=== PATIENT | female | born 1990 | race Caucasian/White ===

== ENCOUNTER 2017-07-09 14:27 | Day surgery (SDC) | payer OTHER ==
[2017-07-09 15:34] LABS: BILIRUBIN,URINE NEGATIVE (NEGATIVE); GLUCOSE, URINE (UA) NEGATIVE (NEGATIVE); KETONES,URINE (UA) TRACE mg/dL (NEGATIVE); LEUKOCYTE ESTERASE, URINE NEGATIVE (NEGATIVE); NITRITE,URINE NEGATIVE (NEGATIVE); OCCULT BLOOD,URINE TRACE-INTA (NEGATIVE); PH,URINE 7.5 PH (5.0-7.5); PROTEIN,URINE NEGATIVE (NEGATIVE); UROBILINOGEN,URINE 0.2 (NORMAL) E.U./dL (NORMAL)
[2017-07-09 15:38] LABS: CLARITY,URINE CLEAR (CLEAR)
[2017-07-09 15:39] LABS: HCG UR QUAL POSITIVE
--- NOTE | 2017-07-09 15:48 | ED Physician Documentation ---
PD HPI FEMALE - Stated complaint Stated Complaint: FEMALE - Chief complaint Chief Complaint: Abd Pain - History obtained from History obtained from: Patient - History of Present Illness Timing - onset: How many days ago (3) Timing - duration: Days (3) Timing - details: Gradual onset, Waxing and waning Associated symptoms: Vaginal bleeding. No: Vaginal discharge, Genital sore/ lesion, Dysuria Contributing factors: (had positive test at home recently.) [employer]INING [employer] History: G (1), P (0) Similar symptoms before: Has not had sx before Recently seen: Not recently seen Review of Systems Constitutional: denies: Fever, Chills Nose: denies: Rhinorrhea / runny nose, Congestion Throat: denies: Sore throat Respiratory: denies: Dyspnea, Cough GI: denies: Abdominal Pain, Nausea, Vomiting, Diarrhea Skin: denies: Rash, Lesions PD PAST MEDICAL HISTORY - Past Medical History Cardiovascular: None Respiratory: None Neuro: None Endocrine/Autoimmune: None - Present Medications Home Medications: Ambulatory Orders Medication Instructions Recorded Confirmed No Known Home Medications [No 07/09/17 07/09/17 Known Home Medications] - Allergies Allergies/Adverse Reactions: Allergies Allergy/AdvReac Type Severity Reaction Status Date / Time No Known Drug Allergies Allergy Verified 07/09/17 14:36 PD ED PE NORMAL - Vitals Vital signs reviewed: Yes - General General: Alert and oriented X 3, No acute distress, Well developed/nourished - HEENT HEENT: Pharynx benign - Neck Neck: Supple, no meningeal sign, No adenopathy - Cardiac Cardiac: RRR, No murmur - Respiratory Respiratory: Clear bilaterally - Abdomen Abdomen: Soft, Non tender, Other (mild tender right lower) - Derm Derm: Normal color, Warm and dry - Extremities Extremities: No deformity, No tenderness to palpate - Neuro Neuro: Alert and oriented X 3, No motor deficit, Normal speech Results - Vitals Vitals: Vital Signs - 24 hr 07/09/17 07/09/17 07/09/17 14:30 18:19 19:44 Temperature 36.3 C L 37.1 C 36.9 C Heart Rate 90 82 93 Respiratory 16 20 18 Rate Blood Pressure 130/62 111/69 105/68 Blood Pressure [Left Brachial artery] O2 Saturation 99 100 100 07/09/17 07/09/17 07/09/17 21:27 21:30 21:35 Temperature Heart Rate Respiratory Rate Blood Pressure Blood Pressure [Left Brachial artery] O2 Saturation 100 100 100 07/09/17 07/09/17 07/09/17 21:40 21:45 21:50 Temperature Heart Rate Respiratory Rate Blood Pressure Blood Pressure [Left Brachial artery] O2 Saturation 97 100 100 07/09/17 07/09/17 07/09/17 21:56 22:00 22:18 Temperature 37.4 C Heart Rate 98 90 Respiratory 14 14 Rate Blood Pressure Blood Pressure 134/69 H 105/61 [Left Brachial artery] O2 Saturation 100 99 99 Oxygen O2 Source Room air - Labs Labs: Laboratory Tests 07/09/17 07/09/17 07/09/17 15:20 15:20 16:24 WBC RBC Hgb Hct MCV MCH MCHC RDW Plt Count MPV Neut # Lymph # [place] # Eos # Baso # Absolute Nucleated RBC Nucleated RBC % HCG, Quant 2377.00 Urine Color YELLOW Urine Clarity CLEAR Urine pH 7.5 Ur Specific [place] 1.020 1.020 Urine Protein NEGATIVE Urine Glucose (UA) NEGATIVE Urine Ketones TRACE Urine Occult Blood TRACE-INTA Urine Nitrite NEGATIVE Urine Bilirubin NEGATIVE Urine Urobilinogen 0.2 (NORMAL) Ur Leukocyte Esterase NEGATIVE Ur Microscopic Review NOT INDICATED Urine Culture Comments NOT INDICATED Urine HCG, Qual POSITIVE 07/09/17 16:24 WBC 7.8 RBC 4.85 Hgb 13.9 Hct 42.3 MCV 87.2 MCH 28.7 MCHC 32.9 RDW 12.9 Plt Count 382 MPV 6.6 L Neut # 6.0 Lymph # 1.2 L [place] # 0.4 Eos # 0.1 Baso # 0.0 Absolute Nucleated RBC 0.00 Nucleated RBC % 0.0 HCG, Quant Urine Color Urine Clarity Urine pH Ur Specific [place] Urine Protein Urine Glucose (UA) Urine Ketones Urine Occult Blood Urine Nitrite Urine Bilirubin Urine Urobilinogen Ur Leukocyte Esterase Ur Microscopic Review Urine Culture Comments Urine HCG, Qual - Rads (name of study) pelvic U/S Radiology: Prelim report reviewed (No iup; right adnexal cystic mass concerning for ectopic . ) PD MEDICAL DECISION MAKING - ED course Complexity details: reviewed results, considered differential, d/w patient, d/w forestry consultant (dr [email or web address]) Departure - Departure Disposition: ED Transfer to [facility] Clinical Impression: Early stage of , Ovarian mass Ectopic Qualifiers: Location of ectopic : ovarian Intrauterine status: without intrauterine Laterality: right Qualified Code(s): O00.201 - Right ovarian without intrauterine Condition: Stable Record reviewed to determine appropriate education?: Yes Discharge Date/Time: 07/09/17 20:25
[2017-07-09 16:29] LABS: BASOPHILS % (AUTO) 0.4 %; EOSINOPHILS # (AUTO) 0.1 10^3/uL (0.0-0.7); EOSINOPHILS % (AUTO) 1.4 %; HGB - HEMOGLOBIN 13.9 g/dL (12.0-16.0); LYMPHOCYTES # (AUTO) 1.2 10^3/uL (1.5-3.5); LYMPHOCYTES % (AUTO) 14.9 %; MEAN CORPUSCULAR HEMOGLOBIN 28.7 pg (27.0-31.0); MEAN CORPUSCULAR HGB CONC 32.9 g/dL (32.0-36.0); MEAN CORPUSCULAR VOLUME 87.2 fL (81.0-99.0); MEAN PLATELET VOLUME 6.6 fL (7.9-10.8); MONOCYTES # (AUTO) 0.4 10^3/uL (0.0-1.0); MONOCYTES % (AUTO) 5.6 %; NEUTROPHILS % (AUTO) 77.7 %; PLT - PLATELET COUNT 382 10^3/uL (130-450); RED BLOOD COUNT 4.85 10^6/uL (4.20-5.40); RED CELL DISTRIBUTION WIDTH 12.9 % (12.0-15.0); WHITE BLOOD COUNT 7.8 x10^3/uL (4.8-10.8)
--- NOTE | 2017-07-09 18:13 | Ultrasound Report ---
REVISED: REPORT ORIG. SIGNED ON 07/09/2017@1813; ORDERS LINKED ON 2017jll EXAM: FIRST TRIMESTER OBSTETRIC ULTRASOUND (Less than 11 weeks) EXAM DATE: 07/09/2017 05:44 PM. CLINICAL HISTORY: Vag bleeding; early . HCG 2377. Patient reports uncertain LMP. LMP: Possibly 05/18/2017. COMPARISONS: None. TECHNIQUE: Transabdominal and transvaginal ultrasound examination with static image documentation. CLINICAL DATES EGA 7 weeks, 3 days with ALYSSA 02/22/2018 based on LMP. ASSESSMENT Gestational Sac: No intrauterine gestational sac is identified. Other: None. MATERNAL STRUCTURES Uterus: Retroverted and measures 7.2 x 3.7 x 4.8 cm for a total volume of 67.2 cc. Endometrial thickness measures 3 mm. Cervix: Closed. Right Ovary/Adnexa: While a complex 2.4 x 1.9 x 1.8 similar cyst is seen in the right ovary. Smaller adjacent subcentimeter follicles are present.. The ovary measures 3.7 x 3.3 x 3.0 cm, volume 18.9 cc. Left Ovary/Adnexa: Sub-centimeters follicles. The ovary measures 3.4 x 2.3 x 3.1 cm, volume 13 cc. Free Fluid: None. Other: Superior to the right ovary is a round right adnexal mass measuring 2.0 x 1.4 x 1.6 cm, total volume 2.3 cc which appears separate from the right ovary. IMPRESSION 1. No intrauterine gestational sac is identified. Right adnexal 2.0 cm structure superior to the right ovary. In the absence of an intrauterine gestation and the current hCG findings are concerning for a right adnexal ectopic . 2. Normal ovaries with a dominant mildly complex right ovarian 2.4 cm cyst. Findings discussed with Dr. Canales following the study at 1810 hrs. On 2017. [facility] Referring Provider Line: [phone] SITE ID: [id number]
[2017-07-09] MEDS ORDERED: LIDOCAINE 1%-EPI 1:100000 20 ML MDV ONE (19:51)
[2017-07-09] MEDS ORDERED: LIDOCAINE 1%-EPI 1:100000 30 ML MDV SUBQ ONE ×2 (21:02)
[2017-07-09] MEDS ORDERED: LACTATED RINGERS 1,000 ML IV ONE (21:03)
[2017-07-09] MEDS ORDERED: ONDANSETRON 4 MG/2 ML VIAL IVP ONE (21:29)
[2017-07-09] MEDS ORDERED: NEOSTIGMINE 1 MG/1 ML 10 ML MDV IVP ONE (21:29)
[2017-07-09] MEDS ORDERED: DEXAMETHASONE 4 MG/ML VIAL IVP ONE (21:29)
[2017-07-09] MEDS ORDERED: KETOROLAC 30 MG/ML VIAL IVP ONE (21:29)
[2017-07-09] MEDS ORDERED: MIDAZOLAM 2 MG/2 ML VIAL IVP ONE (21:29)
[2017-07-09] MEDS ORDERED: GLYCOPYRROLATE 1 MG/5 ML VIAL IVP ONE (21:29)
[2017-07-09] MEDS ORDERED: SUCCINYLCHOLINE 200 MG/10 ML VIAL IVP ONE (21:29)
[2017-07-09] MEDS ORDERED: ROCURONIUM 50 MG/5 ML VIAL IVP ONE (21:29)
[2017-07-09] MEDS ORDERED: PROPOFOL 200 MG/20 ML VIAL IVP ONE (21:29)
[2017-07-09] MEDS ORDERED: fentaNYL 100 MCG/2 ML VIAL IVP ONE (21:29)
--- NOTE | 2017-07-09 21:41 | OPERATIVE REPORT ---
Operative Report - Other Other Information/Narrative: Date of Operation: 07/09/2017 Surgeon: Shannon Stewart DO FACOG [employer] Kiln Operator: None Tempering Machine Operator: Shira Tse CRNA Anesthesia: GET Pre-Op Dx: 1. 27 yo 2. Right ectopic Post-Op Dx: 1. 27 yo 2. Right ectopic 3. Hemoperitoneum 4. Endometriosis Procedure: 1. Laparoscopic right salpingectomy Findings: 1. Hemoperitoneum 2. Right ectopic in the fallopian tube 3. Moderate amount of endometriotic implants in posterior cul-de-sac 4. Normal appendix 5. Normal liver edge Specimens: Right fallopian tube Drains: None EBL: 5 mL Complications: None OP Note Dictation #[id number]:
[2017-07-09] MEDS ORDERED: HYDROmorphone 0.5 MG/0.5 ML SYRINGE ONE (21:42)
[2017-07-09] MEDS ORDERED: HYDROcod/ACET 5/325 Prepack 4 PO STA (21:51)
[2017-07-09] MEDS ORDERED: ACETAMINOPHEN 1,000 MG/100 ML 100 ML IV ONE (21:53)
[2017-07-09] MEDS ORDERED: HYDROcod/ACET 5/325 Prepack 4 PO ONE (22:02)
[2017-07-09 22:20] VITALS: BP 105/61
--- NOTE | 2017-07-09 22:56 | PREOP HISTORY & PHYSICAL ---
DATE OF SERVICE: 07/09/2017 Physician: Shannon Stewart DO IDENTIFICATION: This is a 27-year-old G1, P0, with LMP about two weeks ago. HISTORY OF PRESENT ILLNESS: I was asked to see the patient here at [facility] Emergency Department by Dr. Julien Canales. Patient presented to the emergency department with complaints of spotting on and off for the last two weeks, as well as having some mild cramping. The cramping has been occurring irregularly and at worst 4-5/10. Patient states that her period since March has been irregular. She is not on any control, nor is she attempting to get . She is accompanied today by her boyfriend Baltazar. PAST MEDICAL HISTORY: None. She denies any hypertension, diabetes, thyroid disorder, asthma, anxiety, or depression. PAST SURGICAL HISTORY: None. She denies any cholecystectomy or appendectomy. ALLERGIES: NO KNOWN DRUG ALLERGIES. MEDICATIONS: PRN [id number] allergy medication. SOCIAL HISTORY: She denies any tobacco or illicit drug use. She does consume alcohol every other weekend, about three beers. 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 She is originally from [place]. Patient's boyfriend Baltazar is from [place], and he is a corporate aircraft mechanic in the [employer]. PAST OBSTETRICAL HISTORY: Current. PAST GYNECOLOGIC HISTORY: Normal Pap smears and she denies any sexually transmitted diseases. She states that she has monthly periods and bleeds for five days. She denies any dysmenorrhea or menorrhagia. FAMILY HISTORY: She denies any female carcinoma. REVIEW OF SYSTEMS: She denies any nausea, vomiting, fevers, chills, diarrhea, constipation. PHYSICAL EXAMINATION VITAL SIGNS: Temperature is 36.6, heart rate 90, respiratory rate 16, blood pressure 130/62, O2 saturation 99. GENERAL: Patient is a well-developed, well-nourished, female in no apparent distress. She is alert and oriented x3. CARDIOVASCULAR: Regular. No murmurs or rubs. PULMONARY: Lungs are clear to auscultation bilaterally. ABDOMEN: Soft, nontender. LABORATORY: Workup shows a negative urinalysis with positive urine hCG. White count 7.8, H and H 13.9 and 42.3, platelets of 382. Pelvic ultrasound shows a retroverted uterus measuring 7.2 x 3.7 x 4.8 cm. Endometrial thickness measures 3 mm. Right adnexa while a complex 2.4 x 1.9 x 1.8 cm cyst is seenin the right ovary, smaller adjacent subcentimeter follicles are present. The ovary measures 3.7 x 3.3 x 3.0 cm. Left ovary measures 3.4 x 2.3 x 3.1 cm, subcentimeter follicles, no free fluid. Superior to the right ovary is a round adnexal mass measuring 2.0 x 1.4 x 1.6 cm, which appears separate from the right ovary. ASSESSMENT 1. A 27-year-old G1, P0. 2. Right ectopic . PLAN 1. Discussed with the patient that the most likely diagnosis is an ectopic . She states that she does not want to continue on with this should it be viable. I discussed with patient my recommendation is to proceed to a laparoscopic right salpingectomy if this is an ectopic . However, should both fallopian tubes and ovaries appeared to be within normal limits, I will also proceed to a dilatation and curettage to further evaluate the location of the and also to terminate this . She does not want to continue on with it. I discussed with the patient the risks, benefits, alternatives, indications, expectations of the aforementioned procedures. After all her questions were answered to her satisfaction, she verbalized desire to proceed with surgery. Included in our discussion of risks were hemorrhage, infection and damage to surrounding organs , which may be an inadvertent laceration, cauterization, or ligation of adjacent intestines, ureters, and bladder. Consent forms have been signed. 2. Anticipate giving patient prescriptions for ibuprofen, as well as Vicodin for postoperative convalescence. 3. Anticipate seeing patient in two weeks for routine postop followup. 4. We will write a note for the patient excusing her from duty. 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 TD: 07/09/2017 22:54 MTDDakota
--- NOTE | 2017-07-10 00:34 | OPERATIVE REPORT ---
DATE OF OPERATION: 07/09/2017 PREOPERATIVE DIAGNOSES 1. A 27-year-old G1, P0. 2. Right ectopic . POSTOPERATIVE DIAGNOSES 1. A 27-year-old G1, P0. 2. Right ectopic . 3. Hemoperitoneum. 4. Endometriosis. PROCEDURE: Laparoscopic right salpingectomy. SURGEON: Shannon Stewart DO, FACOG MANAGER EMERGENCY: None ANESTHESIA: General endotracheal tube. FIRST DYER: Shira Tse CRNA. FINDINGS 1. Hemoperitoneum. 2. Right ectopic in the fallopian tube without any active bleeding. 3. Moderate amount of endometriotic implants on the uterosacral ligaments. 4. Normal appendix. 5. Normal liver edge. SPECIMENS REMOVED: Right fallopian tube. DRAINS: None. ESTIMATED BLOOD LOSS: 5 mL COMPLICATIONS: None. BRIEF HISTORY: The patient is a patient in the [place] who presented to [facility] Emergency Department with complaints of irregular bleeding as well as some cramping. Workup revealed that she had a positive quant of 2377. In addition, the ultrasound revealed an endometrium of 3 mm and a mass distinct from the right ovary that is complex and concerning for an ectopic . I discussed with patient the risks, benefits, alternatives, indications, expectations of a laparoscopic right salpingectomy. Should no ectopic be seen, I would proceed to a dilatation and curettage. I discussed with patient the risks, benefits, alternatives, indications, and expectations of a laparoscopic right salpingectomy. Including in the discussion where the risks of hemorrhage, infection and damage to surrounding organs, which may be inadvertent laceration, cauterization or ligation of the adjacent intestines, bladder and ureters. After all of the patient's questions were answered to her satisfaction, she verbalized her desire to proceed with surgery. Consent forms were signed. OPERATION IN DETAIL: Patient was identified and consented, and taken to the operating room where IV access was already in place. She was given sequential compression devices, which were placed to lower extremities and turned on. Patient was then given satisfactory general endotracheal tube anesthesia as per Shira Tse. Patient was then prepped and draped in normal sterile fashion in the lithotomy position using the Yellofin stirrups. A Curtis catheter was placed in her bladder. Timeout was then performed, which quickly identified the patient, site of the procedure, and procedure itself. Antibiotics were not indicated in this case. First, 2 laparoscopic port sites were identified in the subumbilical fold and right lower quadrant. These 2 port sites were injected with 1% lidocaine with epinephrine. A total use of local anesthetic of 1% lidocaine with epinephrine was 19 mL at the end of the case. Two 5 mm stab incisions were made in the subumbilical fold as well as the right lower quadrant that was identified as being 2 fingerbreadths superior and medial to the anterior superior iliac spine. The Visiport trocar was then used to directly enter into the abdomen. No trauma to intraabdominal organs were noted. CO2 gas was then insufflated and satisfactory pneumoperitoneum was obtained. A brief exploration of the pelvis revealed a right ectopic in the fallopian tube. Given this finding, a 12 mm port site was then placed in the left lower quadrant in a similar fashion. This port site was identified by finding the respective anterior superior iliac spine and then moving 2 fingerbreadths medial and superior to this location. The site was then injected with 1% lidocaine with epinephrine. This port was then placed under direct visualization of the camera. Further exploration of the pelvis and upper abdomen revealed normal appendix and liver edge. There were some areas of general adhesions on the intestines in the abdominal sidewalls. There was a couple noted in the right and left pelvises at the level of the pelvic brim. Further observation revealed significant endometriotic implants in the posterior cul-de-sac. It appeared to be peppered on the midline on the uterosacral ligaments. The cul-de-sac; however, was not ablated. A suspicious area of endometriosis was also seen on the medial aspect of the right ovary and a smaller spot located on the peritoneum on the bladder. The right fallopian tube was first identified and followed to its fimbriated end. Then, with the LigaSure, the fallopian tube was clamped, cauterized, and incised just inferior to the mesosalpinx and then on the uterus, where the fallopian tube attached to the uterus. Hemostasis was noted. The right fallopian tube was then placed in an EndoCatch and removed. Repeat inspection of the pedicle revealed hemostasis. At this point in time, the procedure had been completed. The 12 mm incision in the left lower quadrant was then closed with a Erich-Gabo closing device, 0 Vicryl was used. All instruments were removed from the abdomen and CO2 gas was allowed to egress into the atmosphere, thus relieving the pneumoperitoneum. All 3 trocar sites were then closed with 4 -0 Monocryl in subcuticular fashion. Dermabond was placed on top of the 3 incision. Patient tolerated the procedure well and was taken back to recovery room in stable condition. She will be discharged home today and after postoperative criteria are met. All sponge, lap, and needle counts were correct, as per nurse report. Patient is expected to follow up with myself at [facility] in 2 weeks for routine postop visit. She will be given 2 prescriptions for ibuprofen as well as Vicodin for her postoperative convalescence. TD: 07/10/2017 00:33 CARL
== END 2017-07-09 19:21 | disposition home or self-care (01) ==
LOC: ED 14:27 → SDS 19:20
PROVIDERS: ATTEND Obstetrics & Gynecology
PROC: 0UT54ZZ Resection of Right Fallopian Tube, Percutaneous Endoscopic Approach (ICD-10-PCS; 2017-07-09)
PROC: 10T24ZZ Resection of Products of Conception, Ectopic, Percutaneous Endoscopic Approach (ICD-10-PCS; principal; 2017-07-09 20:00)
DX: O00.101 Right tubal pregnancy without intrauterine pregnancy (principal); N80.3 Endometriosis of pelvic peritoneum; K66.1 Hemoperitoneum
CPT/HCPCS: 59151; 76801; 76817; 81003; 81025; 84702; 85025; 99283; 99284; J0131; J0330; J1170; J7120; 81001; 87086; 88305

== ENCOUNTER 2018-05-18 16:15 | Emergency (ER) | payer OTHER ==
[2018-05-18 16:36] VITALS: BP 119/68
[2018-05-18 16:50] LABS: BILIRUBIN,URINE NEGATIVE (NEGATIVE); KETONES,URINE (UA) NEGATIVE (NEGATIVE); LEUKOCYTE ESTERASE, URINE LARGE (NEGATIVE); NITRITE,URINE POSITIVE (NEGATIVE); OCCULT BLOOD,URINE NEGATIVE (NEGATIVE); PH,URINE 5.5 PH (5.0-7.5)
[2018-05-18 17:21] LABS: CLARITY,URINE CLEAR (CLEAR)
[2018-05-18 17:23] LABS: BACTERIA,URINE Many /HPF (None Seen); SQUAMOUS EPITHELIAL CELL,UR FEW Squamous (<= Few); WBC CLUMPS,URINE PRESENT
--- NOTE | 2018-05-18 18:14 | ED Physician Documentation ---
PD HPI FEMALE - Stated complaint Stated Complaint: FEMALE - Chief complaint Chief Complaint: UTI - History obtained from History obtained from: Patient - History of Present Illness Timing - onset: Today Timing - duration: Days (1) Timing - details: Abrupt onset Associated symptoms: Dysuria, Urinary frequency. No: Fever, Back pain, Pelvic pain, Vaginal discharge Contributing factors: No: , Exposed to STD Similar symptoms before: Diagnosis (uti) Recently seen: Not recently seen Review of Systems Constitutional: denies: Fever, Chills Nose: denies: Rhinorrhea / runny nose, Congestion Throat: denies: Sore throat Respiratory: denies: Cough GI: denies: Vomiting Skin: denies: Rash Musculoskeletal: denies: Back pain PD PAST MEDICAL HISTORY - Past Medical History Cardiovascular: None Respiratory: None Endocrine/Autoimmune: None - Past Surgical History Past Surgical History: No - Present Medications Home Medications: Ambulatory Orders Medication Instructions Recorded Confirmed Sulfamethox/Trimeth 800/160 1 each PO BID #14 tablet 05/18/18 [Bactrim Ds 800/160] - Allergies Allergies/Adverse Reactions: Allergies Allergy/AdvReac Type Severity Reaction Status Date / Time No Known Drug Allergies Allergy Verified 05/18/18 16:36 - Social History Does the pt smoke?: No Smoking Status: Never smoker Does the pt drink ETOH?: Yes Does the pt have substance abuse?: No PD ED PE NORMAL - Vitals Vital signs reviewed: Yes - General General: Alert and oriented X 3, No acute distress, Well developed/nourished - Female Female : Deferred - Back Back: No CVA TTP - Derm Derm: Normal color, Warm and dry Results - Vitals Vitals: Vital Signs - 24 hr 05/18/18 16:34 Temperature 36.7 C Heart Rate 88 Respiratory 18 Rate Blood Pressure 119/68 O2 Saturation 100 Oxygen O2 Source Room air - Labs Labs: Laboratory Tests 05/18/18 16:43 Urine Color ORANGE Urine Clarity CLEAR Urine pH 5.5 Ur Specific [place] 1.010 Urine Protein [employer] PRINTING BACK TENDER Urine Glucose (UA) [employer] BACK TENDER Urine Ketones NEGATIVE Urine Occult Blood NEGATIVE Urine Nitrite POSITIVE H Urine Bilirubin NEGATIVE Urine Urobilinogen [employer] TENDER Ur Leukocyte Esterase LARGE H Urine RBC 6-10 H Urine WBC >25 H Urine WBC Clumps PRESENT Ur Squamous Epith Cells FEW Squamous Urine Bacteria Many H Ur Microscopic Review INDICATED Urine Culture Comments INDICATED PD MEDICAL DECISION MAKING - ED course Complexity details: considered differential, d/w patient Departure - Departure Disposition: 01 Home, Self Care Clinical Impression: Urinary tract infection Qualifiers: Urinary tract infection type: acute cystitis Hematuria presence: without hematuria Qualified Code(s): N30.00 - Acute cystitis without hematuria Condition: Stable Record reviewed to determine appropriate education?: Yes Instructions: ED UTI Cystitis Female Prescriptions: Sulfamethox/Trimeth 800/160 [Bactrim Ds 800/160] 1 each PO BID #14 tablet Comments: Drink lots of fluids. Ibuprofen or naproxen if needed for pain or discomfort. Continue the phenazopyridine as needed as well. Bactrim antibiotic twice daily for a week to clear the infection. Recheck if not improved well over the next few days however. Return if worsening such as fever, back pain, vomiting, lightheadedness. Discharge Date/Time: 05/18/18 18:38
[2018-05-18] MEDS ORDERED: PHENAZOPYRIDINE 100 MG TABLET PO STA (18:18)
[2018-05-18] MEDS ORDERED: SULFAMETH/TRIMETH DS 800/160 MG TABLET PO STA (18:18)
== END 2018-05-18 18:38 | disposition home or self-care (01) ==
LOC: ED 16:15
DX: N30.00 Acute cystitis without hematuria (principal)
CPT/HCPCS: 81001; 87077; 87086; 87181; 99283; A9270; 81003

== ENCOUNTER 2020-06-01 07:00 | Outpatient (CLI) | payer SELFPAY ==
[2020-06-01 23:49] LABS: CHLAMYDIA TRACHOMATIS DNA NEGATIVE (NEGATIVE); NEISSERIA GONORRHOEAE DNA NEGATIVE (NEGATIVE); TRICHOMONAS VAGINALIS DNA NEGATIVE (NEGATIVE)
[2020-06-03 07:40] LABS: HIV AG/AB 4TH GEN NON-REACTIVE (NON-REACTIVE)
[2020-06-03 12:37] LABS: HEPATITIS B SURFACE ANTIGEN NON-REACTIVE (NON-REACTIVE); HEPATITIS C ANTIBODY NON-REACTIVE (NON-REACTIVE)
== END 2020-06-01 23:59 | disposition home or self-care (01) ==
LOC: LAB.N 07:00
PROVIDERS: ATTEND Physician Assistant Medical
DX: Z11.3 Encounter for screening for infections with a predominantly sexual mode of transmission (principal)
CPT/HCPCS: 36415; 86592; 86803; 87340; 87389; 87491; 87591; 87661

== ENCOUNTER 2023-10-25 09:15 | Outpatient (CLI) | payer OTHER | END 2023-10-25 09:30 | disposition home or self-care (01) | LOC: LAB.N 09:15 | PROVIDERS: ATTEND Physician Assistant Medical | DX: N39.0 Urinary tract infection, site not specified (principal) | CPT/HCPCS: 87077; 87086; 87181 ==